=== PATIENT | male | born 1985 | race Caucasian/White ===

== ENCOUNTER 2025-06-25 06:32 | Emergency (ER) | payer MEDICAID, SELFPAY ==
[2025-06-25 06:36] VITALS: BP 131/85; PULSE 108; RESP 20; TEMP 36.8; O2SAT 97
--- NOTE | 2025-06-25 06:39 | ECG_ITS ---
Test Reason : PALPITATIONS Blood Pressure : */* mmHG Vent. Rate : 108 BPM Atrial Rate : 108 BPM P-R Int : 176 ms QRS Dur : 78 ms QT Int : 330 ms P-R-T Axes : 35 35 -12 degrees QTcB Int : 442 ms Sinus tachycardia with Premature atrial complexes Otherwise normal ECG No previous ECGs available Referred By: Kanchan Dickson Electronically Signed By: JESSENIA SR
[2025-06-25 06:40] VITALS: BP 143/90; PULSE 130; TEMP 36.8; O2SAT 100; BMI 30.8
--- NOTE | 2025-06-25 06:41 | ED_ITS ---
HPI - Arrhythmia/Palpitations General Chief Complaint: Anxiety Stated Complaint: anxiety attack Source: patient, EMS and old records reviewed Mode of arrival: EMS Limitations: no limitations History of Present Illness ED Provider: JAKE SINGER narrative: 40-year-old male with past medical history of anxiety but not on any medication, he has had panic attacks before. He does admit to drinking 5 drinks nightly but has no withdrawal symptoms. 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 He denies any recent infectious symptoms, travel, procedures. Prior to arrival he woke up went to get a drink of water and felt his heart rate extremely high, he started to feel anxious and shaky, he started to feel short of breath. He does not elicit any chest pain. He denies this ever happening before. He denies any substance abuse last night, or alzi-ych-gjmtlby medications. He states on arrival to the ED is heart rate feels much less. He denies any history of irregular heartbeat such as AFib. MD complaint: rapid heart beat, heart racing and palpitations Onset (ago): minute(s) (Prior to arrival) Duration: now resolved (It has not resolved but is improving) Severity: moderate Context: occurred during rest Associated symptoms: shortness of breath and anxiety Related Data Allergies Allergy/AdvReac Type Severity Reaction Status Date / Time Penicillins (PENICILLINS) Allergy Unknown UNKNOWN Verified 06/25/25 06:42 Review of Systems 2 Review of Systems: Constitutional : No Fever, No Chills, No Fatigue ENT/Mouth : No sore throat, No Rhinorrhea Eyes: No Eye Pain, No Swelling, No Redness Cardiovascular : No Chest Pain, positive SOB, No Dyspnea on Exertion, positive palpitation Respiratory : No Cough, No Sputum Gastrointestinal : No Nausea, No Vomiting, No Diarrhea, No abdominal Pain Genitourinary : No Dysuria, No Urinary Frequency, No Hematuria, Musculoskeletal : No joint pain, No Myalgias, No Joint Swelling Skin : No Skin Lesions, No rash Neuro : No Weakness, No Numbness, positive Dizziness, no Headache All other systems reviewed and are negative [facility] [place] Past Medical History Attestation statement: The following information was validated with the patient. Source: old records reviewed Medical History Anxiety Social History Social History (Updated 06/25/25 @ 06:46 by Kanchan Dickson DO) Alcohol intake: current Alcohol intake frequency: a few times a week Patient Tobacco Use Status: Tobacco use Unknown Smoked in Last 30 Days: Yes Use of substances other than those prescribed or required for medical reasons: No Advance Directives: No Advance Directives Information Provided: Yes Physical Exam 2 Vital Signs: Vital Signs: Last Vital Signs Temp 98.2 F 06/25/25 06:40 Pulse 108 H 06/25/25 06:36 Resp 20 06/25/25 06:36 BP 131/85 06/25/25 06:36 Pulse Ox 97 06/25/25 06:36 O2 Del Method Room Air 06/25/25 06:36 BMI result Body Mass Index 30.8 Appearance: Alert. Oriented X3. No acute distress. Anxious Eyes: Pupils equal, round and reactive to light. ENT: Pharynx normal. Neck: Normal inspection. Neck supple. CVS: Tachycardic heart rate and rhythm. Pulses normal. Respiratory: No respiratory distress. Breath sounds normal. Abdomen: Soft and nontender. Skin: Skin warm and dry. Normal skin color. Normal skin turgor. Extremities: No lower extremity edema. No calf ttp Neuro: Oriented X 3. No motor deficit. No sensory deficit. Medications Administered Discontinued Medications Generic Name Dose Route Start Last Admin Trade Name Carlosq PRN Reason Stop Dose Admin Lactated Ringer's 1,000 mls @ 999 mls/hr 06/25/25 06:39 06/25/25 08:41 Lr IV 06/25/25 07:39 Infused .Q1H1M ONE Infusion Lorazepam 1 mg 06/25/25 06:39 06/25/25 06:49 Lorazepam 1 Mg Tablet PO 06/25/25 06:40 1 mg ONCE ONE Administration Medical Decision Making Medical Decision Making MDM Narrative: 40-year-old male with past medical history of anxiety as well as 5 drinks a night of alcohol, he denies any history of withdrawal symptoms or seizures. He denies any substance abuse ingestions. He has no recent travel or procedures. He comes in with complaint of increased heart rate that has improved upon arrival. He had rapid heart rate now he is in the low 100s he states it was much higher at home though he has no watch to check it. He has no risk factors for ACS, pulmonary embolus, dissection. I am going to obtain EKG, place him on tele, start IV fluids, start anxiolytic. I did discuss with him that this could possibly be due related to alcohol use AFib in the treatment would be to abstain. Differential Diagnosis Differential Diagnoses: The differential diagnosis associated with the presentation includes Alcohol-induced AFib, electrolyte abnormality, dehydration, anxiety, other than tachycardia likely due to anxiety he has no risk factors for pulmonary embolus He has no chest pain or symptoms to suggest dissection He has no other cardiac symptoms to suggest ACS Admission/Observation Consideration of admission/observation: Escalation of care including admission/observation considered Labs reassuring and repeat labs negative workup at this time we will DC home with instructions to decrease alcohol use Lab Data MDM Lab Attestation statement: I reviewed the patient's lab results. 06/25/25 06:46 06/25/25 06:46 Labs: Lab Results 06/25/25 06/25/25 Range/Units 06:46 08:32 WBC 8.5 (4.8-10.8) X10*3/uL RBC 4.83 (4.60-5.80) X10*6/uL Hgb 14.5 (14.0-18.0) g/dl Hct 42.4 (42.0-52.0) % MCV 87.8 (80.0-98.0) fL MCH 30.0 (27.0-33.0) pg MCHC 34.2 (31.0-36.0) g/dl RDW 12.6 (11.0-16.0) % Plt Count 197 (160-400) X10*3/uL MPV 10.8 (9.4-12.4) fL Immature Gran % (Auto) 0.4 (0.0-0.4) % Neut % (Auto) 48.4 (45-73) % Lymph % (Auto) 38.8 (20-40) % [place] % (Auto) 7.3 (2-11) % Eos % (Auto) 4.7 H (0-4) % Baso % (Auto) 0.4 (0-2) % Lymph # (Auto) 3.3 (1.2-4.9) X10*3/uL [place] # (Auto) 0.6 (0.1-1.2) X10*3/uL Eos # (Auto) 0.4 (0.0-0.4) X10*3/uL Baso # (Auto) 0.0 (0.0-0.2) X10*3/uL Abs Immat Gran (auto) 0.03 (0.00-0.03) X10*3/uL Absolute Neuts (auto) 4.1 (2.0-8.3) x10*3/uL Absolute Nucleated RBC 0.000 (0.0-0.012) X10*3/uL Nucleated RBC % (auto) 0.0 (0.0-0.2) /100WBC Sodium 142 (135-145) mmol/L Potassium 3.6 (3.3-5.1) mmol/L Chloride 110 H (96-108) mmol/L Carbon Dioxide 22 (22-29) mmol/L Anion Gap 14 (12-20) BUN 14 (9-16) mg/dL Creatinine 0.75 (0.5-1.4) mg/dL Estim Creat Clear Calc 175.4 Estimated GFR > 60 Random Glucose 90 (60-115) mg/dL Calcium 8.8 (8.4-10.2) mg/dL Magnesium 2.0 (1.6-2.6) mg/dL Total Bilirubin 0.2 (0.0-1.0) mg/dL Direct Bilirubin < 0.2 (0.0-0.5) mg/dL AST 34 (5-37) U/L ALT 51 H (0-40) U/L Alkaline Phosphatase 62 (39-117) U/L Troponin I High Sens < 2.7 < 2.7 (<3.5-35.0) ng/L Total Protein 7.0 (6.5-8.0) g/dL Albumin 4.4 (3.5-5.0) g/dL Lipase 20 (8-78) U/L TSH 1.64 (0.32-4.0) uIU/mL Ethyl Alcohol 14 mg/dL Independent Interpretation I performed an independent interpretation of an: EKG Interpretation: Rate: 108 Rhythm: Sinus tachycardia with PACs [place]: Normal Normal P waves. Normal [place]. Normal QRS complex. ST T wave : No ST-elevation, inverted T-wave in lead 3 qTC: 442 prior studies: No prior The study has been interpreted contemporaneously by me. . Independent Historian Clinical information obtained from an independent historian. History obtained from or confirmed by: EMS External Record Review External record reviewed: Outpatient record Prescription Management I considered prescription management with: Other Discharge Plan Discharge Clinical Impression: Acute anxiety, Heart palpitations Patient Disposition: Home, Self-Care Instructions: Heart Palpitations (ED), Anxiety (ED) Additional Instructions: Your EKG, your labs, cardiac monitoring while in the ED were all reassuring At this time as discussed I would cut down on your alcohol intake and talk to your primary care doctor about this This could have been anxiety but also something called atrial fibrillation due to your ETOH use Please follow up with your primary care doctor and ask for a Holter monitor which is a cardiac catheterization technician that stays on at home Rest and stay hydrated, return for any worsening symptoms or concerns If you would like to cut down or stop your alcohol use please consider calling our outpatient Addiction Treatment office:? [facility] (M-F [phone] [address] [place] [address] If you experience seizures, vomiting blood, black stools, falls, severe headache, chest pain, fevers, trouble breathing, hallucinations or any other concerns you need to call 911 or seek immediate care. Please stay hydrated. Print Language: Bolivian
[2025-06-25] MEDS: Lactated Ringers 1,000 ML 999 ML IV (06:44)
[2025-06-25 06:53] LABS: MANUAL DIFF FLAG NO
[2025-06-25 06:57] LABS: Hematocrit 42.4 % (42.0-52.0); Hemoglobin 14.5 g/dl (14.0-18.0); Imm Gran Abs Auto 0.03 X10*3/uL (0.00-0.03); Imm Gran Pct Auto 0.4 % (0.0-0.4); Lymphocytes Absolute Auto 3.3 X10*3/uL (1.2-4.9); Mean Corpuscular HGB Conc 34.2 g/dl (31.0-36.0); Mean Corpuscular Hemoglobin 30.0 pg (27.0-33.0); Mean Corpuscular Volume 87.8 fL (80.0-98.0); NRBC Abs Auto 0.000 X10*3/uL (0.0-0.012); NRBC Pct Auto 0.0 /100WBC (0.0-0.2); Platelet Count 197 X10*3/uL (160-400); Red Blood Count 4.83 X10*6/uL (4.60-5.80); White Blood Count 8.5 X10*3/uL (4.8-10.8)
--- OUTSIDE RECORDS SUMMARY | 2025-06-25 07:27 | XMS_ITS | Clinical Summary ---
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 21 tablet 06/25/2022 Active Active Problems No known active problems Encounters Date Type Department Care Team Description 05/25/2025 11:31 AM EDT - 05/25/2025 1:22 PM EDT Emergency [facility] [address] [place] [address] Discharge Disposition: Home or Self Care from Last 3 Months Immunizations Immunization Administration Dates Next Due Tdap 05/03/2021 Social History Tobacco Use Types Packs/Day Years Used Date Smoking Tobacco: Every Day Cigarettes 0.5 15.9 Started: 2009 Tobacco Cessation:Ready to Q uit: Yes Comments:conversation started Alcohol Use Standard Drinks/Week Comments Yes 25 (1 standard drink = 0.6 oz pure alcohol) 5 beers a night about 5 nights a week Education Answer Date Recorded Are you interested in more education? Not on deven e 11/30/2022 Are you concerned about learning? Not on file 11/30/2022 No 11/30/2022 No 11/30/2022 Food Answer Date Recorded Within the past 6 months we worried whether our food would run out before we got money to buy more. Never True 05/25/2025 Within the past 6 months the food we bought just didn't last and we didn't have enough money to get more. Never True Residential Stability Answer Date Recor ded What is your housing situation today? I have ramu cohn 05/25/2025 How many times have you move d in the past 12 months? Zero (I did not move) 05/25/2025 Paying for Meds Answer Date Recorded Do you have trouble paying for medicines? No 05/25/2025 Paying Utility Bills Answer Date Record ed Do you have trouble paying your heating or elect ricity bill? No 05/25/2025 Transportation Answer Date Recorded Has the lack of transportati on kept you from medical appointments or from getting medications? No 05/25/2025 Digital Access Answer Date Recorded No 05/25/2025 Yes 05/25/2025 Do you have reliable internet access at home? Ye s 05/25/2025 Do you have a device (e.g., phone, tablet, computer) with a working camera? Yes 05/25/2025 Intimate Partner Violence Answer Date R ecorded Are you denied basic needs s uch as food, clothing, or medical care? No 05/25/2025 In the past 12 months have y ou been in a relationship with a person who hurts, threatens, or tries to control you? No 05/25/2025 Are you denied basic needs s uch as food, clothing, or medical care? No 05/25/2025 In the past 12 months have y ou been in a relationship with a person who hurts, threatens, or tries to control you? No 05/25/2025 Sex and Gender Information Value Date Recorded Sex Assigned at Male 05/30/2020 12:37 PM EDT Legal Sex Male 12:33 PM EDT Gender Identity Male 05/30/2020 12:37 PM EDT Sexual Orientation Not on file Last Filed Vital Signs Vital Sign Reading Time Taken Comments Blood Pressure 144/99 05/25/2025 1:12 PM EDT Pulse 88 05/25/2025 1:12 PM EDT Temperature 37.2 C (99 F) 05/25/2025 1:12 PM EDT Respiratory Rate 20 05/25/2025 1:12 PM EDT Oxygen Saturation 95% 05/25/2025 1:12 PM EDT Inhaled Oxygen Concentration - - Weight 104.3 kg (230 lb) 05/25/2025 11:22 AM EDT Height 185.4 cm (6' 1 ) 05/25/2025 11:22 AM EDT Body Mass Index 30.34 05/25/2025 11:22 AM EDT Plan of Treatment Health Maintenance Due Date Last Done Comments LIPID PANEL 1987 DEPRESSION SCREENING 1999 SMOKING Hx and SMOKELESS TOB ACCO SCREENING 2000 HEPATITIS C SCREENING 2005 HIV ONE-TIME SCREENING (18-6 5 YEARS) 2005 PNEUMOCOCCAL VACCINES (0-49 years) (1 of 2 - PCV) 2006 SCREENING FOR DIABETES 05/30/2023 05/30/2020 INFLUENZA VACCINE (#1) 2025 COVID-19 VACCINE (2 - 2024-2 6 season) 2025 11/07/2020 Adult Td,Tdap Booster 05/03/2031 05/03/2021 HEPATITIS A VACCINES Aged Out No long er eligible based on patient's age to complete this topic HIB VACCINES Aged Out No longer eligi ble based on patient's age to complete this topic MENINGOCOCCAL VACCINES (ACWY) Aged Out No longer eligible based on patient's age to complete this topic MENINGOCOCCAL VACCINES (B) Aged Out N o longer eligible based on patient's age to complete this topic Medical Devices Not on file Procedures Procedure Name Priority Date/Time Associated Diagnosis Comments LACERATION REPAIR Routine 05/25/2025 1:1 7 PM EDT from Last 3 Months Results * Laceration/Wound Repair (05/25/2025 1:17 PM EDT) Narrative Tess Dougherty PA-C - 05/25/2025 1:17 PM EDT Tess Dougherty PA-C 05/25/2025 1:18 PM Laceration/Wound Repair Date/Time: 05/25/2025 1:17 PM Performed by: Tess Dougherty PA-C Authorized by: Tess Dougherty PA-C Injury: Body area: Upper extremity Location details: Left index finger 2 Laceration length (cm): 1.3 Foreign bodies: No foreign bodies Tendon involvement: None Nerve involvement: None Vascular damage?: No Patient sedated?: No Anesthesia: Local anesthesia used? Yes Anesthesia: local infiltration Local anesthetic: lidocaine 1% without epinephrine Lidocaine without Epinephrine total (ml): 1 Procedure Details: Preparation: Patient was prepped and draped in usual sterile fashion Irrigation solution: Saline Irrigation method: Jet lavage Amount of cleaning: Extensive Debridement: None Undermining: None Skin closure: 4-0 Prolene Number of sutures: 1 Suture technique: Simple Approximation: Loose Dressinx4 sterile gauze, antibiotic ointment and non-adhesive packing strip Patient tolerance: Patient tolerated the procedure well with no immediate complications Tess Dougherty PA-C PROCEDURE/MINOR SURGICAL ORDERABLES Final Result from Last 3 Months Insurance [employer] Care Teams Sawmill Tally Clerk Relationship Specialty Start Date End Date Pcp, Unknown PCP - General 05/25/25 Additional Source Comments The information contained in this document represents components of the legal health record. It is not the complete legal health record.[facility]
[2025-06-25 07:33] LABS: Troponin-I High Sensitivity < 2.7 ng/L (<3.5-35.0)
[2025-06-25 07:35] LABS: Albumin Level 4.4 g/dL (3.5-5.0); Alkaline Phosphatase 62 U/L (39-117); Anion Gap 14 (12-20); Aspartate Amino Transferase 34 U/L (5-37); Blood Urea Nitrogen 14 mg/dL (9-16); Calcium 8.8 mg/dL (8.4-10.2); Carbon Dioxide 22 mmol/L (22-29); Chloride 110 mmol/L (96-108); Creatinine Clr Calc Pharmacy 175.4; Estimated Glomerular Filt Rate > 60; Lipase 20 U/L (8-78); Magnesium 2.0 mg/dL (1.6-2.6); Potassium 3.6 mmol/L (3.3-5.1); Sodium 142 mmol/L (135-145); Total Protein 7.0 g/dL (6.5-8.0)
[2025-06-25 08:05] LABS: Alanine Aminotransferase 51 U/L (0-40)
[2025-06-25 09:02] LABS: Troponin-I High Sensitivity < 2.7 ng/L (<3.5-35.0)
[2025-06-25 09:13] VITALS: BP 133/66; PULSE 88; RESP 18; TEMP 36.8; O2SAT 98
== END 2025-06-25 09:14 | disposition home or self-care (01) ==
PROVIDERS: Emergency Provider Emergency Medicine
DX: F41.9 Anxiety disorder, unspecified (principal); F43.9 Reaction to severe stress, unspecified; R00.2 Palpitations; R06.02 Shortness of breath; R00.0 Tachycardia, unspecified; Z51.81 Encounter for therapeutic drug level monitoring; Z79.899 Other long term (current) drug therapy
CPT/HCPCS: 36415; 80048; 80076; 80307; 83690; 83735; 84443; 84484; 85025; 93005; 96365; 99284; J7120

== ENCOUNTER → 2025-06-25 06:39 | Outpatient (BNV) | payer MEDICAID, SELFPAY | PROVIDERS: Emergency Provider Emergency Medicine; Visit Provider Internal Medicine | DX: R00.0 Tachycardia, unspecified (principal); I49.1 Atrial premature depolarization | CPT/HCPCS: 93010 ==